=== PATIENT | female | born 1960 | race American Indian/Alaskan Native ===

== ENCOUNTER 2019-04-20 11:00 | Inpatient (IN) | payer OTHER ==
[~2019-04-20] VITALS: Ht 167.6 cm; Wt 83.9 kg
[2019-04-20] MEDS ORDERED: FOLIC ACID1 MG (13:35)
[2019-04-20] MEDS ORDERED: ZETIA10 MG (13:35)
[2019-04-20] MEDS ORDERED: LIPITOR40 MG (13:35)
[2019-04-20] MEDS ORDERED: ASPIR 8181 MG (13:35)
[2019-04-29] MEDS ORDERED: OXYC1TAB9 PO (08:10)
[2019-04-29] MEDS ORDERED: XARELTO10 MG PO (08:10)
[2019-04-29] MEDS ORDERED: INTEGRA PLUS C1 EACH PO (08:10)
== END 2019-04-29 13:23 | DRG 470 ==
LOC: O/R 11:00 → SURG 04-26 06:44 → SURH 04-26 07:00 → O/R 04-26 13:16 → SURG 04-26 15:12
PROVIDERS: ADMIT Orthopaedic Surgery Sports Medicine
PROC: 0SRC0J9 Replacement of Right Knee Joint with Synthetic Substitute, Cemented, Open Approach (ICD-10-PCS; principal; 2019-04-26 07:00)
DX: M17.11 Unilateral primary osteoarthritis, right knee (principal); L40.8 Other psoriasis; E78.00 Pure hypercholesterolemia, unspecified